=== PATIENT | male | born 1975 | race Caucasian/White ===

== ENCOUNTER 2024-09-30 12:46 | Day surgery (SDC) | payer BC ==
[2024-09-30] MEDS ORDERED: Depo-Medrol 40 MG/ML IM ONE (12:47)
[2024-09-30] MEDS ORDERED: LIDOCAINE HCL 2% 100 MG/5 ML IJ ONE (12:47)
[2024-09-30] MEDS ORDERED: propofoL IV ONE (13:46)
--- NOTE | 2024-09-30 14:41 | XRAY ---
Indication: Bilateral L4-S1 MBB. Intraoperative fluoroscopy provided for 8 seconds. Single digital spot image submitted for interpretation demonstrates posterior needle tips projecting over the expected left and right L4-S1 nerve roots. Correlate with intraoperative findings/report.
--- NOTE | 2024-09-30 14:51 | XRAY ---
8 seconds of fluoroscopy was used in surgery for a bilateral L4-S1 MBB.
== END 2024-09-30 14:18 | disposition home or self-care (01) ==
LOC: SDC-PAIN 12:46
PROVIDERS: ATTEND Psychiatry & Neurology Pain Medicine
DX: M47.816 Spondylosis without myelopathy or radiculopathy, lumbar region (principal)
CPT/HCPCS: 64493; 64494; 72020; 77002; J2704